=== PATIENT | male | born 2000 | race Caucasian/White ===

== ENCOUNTER 2021-03-28 08:31 | Observation (INO) ==
--- NOTE | 2021-03-28 09:35 | Emergency Department Note ---
History of Present Illness General Chief complaint: Mental Health Evaluation Stated complaint: MENTAL HEALTH EVALUATION Time Seen by Provider: 03/28/21 09:10 Source: patient, EMS and RN notes reviewed Mode of arrival: ambulatory Limitations: no limitations History of Present Illness This patient is a 20-year-old male who comes in brought in by the police on an apparent 302 petition although the petition statement is not here yet. 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 He is also use a lot of marijuana. This is a recreational use. He has not been try to hurt himself. Denies any aspirin or Tylenol or any overdose. Denies suicidal homicidal ideation. He is got multiple abrasions on his arm and he has a splint on his right hand. He says he likes to fight. He has a laceration on his left middle finger he said happened about a week ago and he has a large flap there is healing by secondary intention. He has had the Covid vaccine and also tested Covid negative on campus recently he tells me. Denies any other complaints. Home Medications Medication Instructions Recorded Confirmed Type bupropion HCl 150 mg 24 hr tablet, 150 mg PO QAM 03/28/21 03/28/21 History extended release (Wellbutrin XL) escitalopram oxalate 20 mg tablet 20 mg PO DAILY 03/28/21 03/28/21 History (Lexapro) Allergies Allergy/AdvReac Type Severity Reaction Status Date / Time No Known Allergies Allergy Unverified 03/28/21 09:17 Past Med/Surg History Medical History (Updated 03/28/21 @ 16:09 by PHYLICIA Oreilly) Anxiety Benzodiazepine abuse COVID Involuntary commitment Family History (Updated 03/28/21 @ 16:04 by PHYLICIA Oreilly) Other Family history non-contributory Social History Smoking Status: Current every day smoker Tobacco Type: Cigarettes Feels Safe at Home: Yes Immunizations: Past medical historyXanax addiction Review of Systems A total of 10 systems reviewed and were otherwise negative Physical Exam Vital Signs Vital Signs - 24 hr 03/28/21 09:03 09/12/21 15:10 Temperature 36.8 C 36.6 C Temperature Source Oral Oral Pulse Rate 90 Pulse Rate [Finger] 74 Respiratory Rate 18 16 Blood Pressure 148/62 H Blood Pressure [Left Arm] 107/73 Blood Pressure Mean 90 Blood Pressure Mean [Left Arm] 84 Pulse Oximetry 93 99 Oxygen Delivery Method Room Air Room Air Sepsis Recent Fever Within 48 Hours No Sepsis New/Unexplained Change in Mental Status N/A Sepsis Action Taken by Nursing No Action Required General: Well developed well nourished young male who appears in no acute distress, breathing comfortably on room air. Normal speech, nonslurred HEENT: Normal cephalic atraumatic. Pupils are equal round and reactive to light. Extraocular movements are intact. Oropharynx is pink with moist mucous membranes. No swelling of the mouth lips or tongue. Neck: Supple with a midline trachea. No meningeal signs or stiffness, no JVD or bruits. No Stridor. Chest: Clear to auscultation bilaterally. No wheezes or rhonchi. No increased work of breathing. Heart: Regular rate and rhythm without murmurs or gallops. Abdomen: Soft nontender, nondistended without rebound guarding or rigidity. Extremities: No cyanosis clubbing or edema. No calf tenderness or assymetry are multiple bruises in the arms. There is a flap of skin on the left middle finger. Is granulating and appears to be an old her wound at this point not amenable to suturing Spine/Back. Non tender to palpation. No CVA tenderness Skin: Good turgor without rashes. Neurologic exam: Cranial nerves two through 12 are intact. Motor and sensation are intact and symmetrical throughout. Psych: Denies suicidal homicidal ideations. Normal thought process Course Administered Medications Discontinued Medications Diphenhydramine HCl (Diphenhydramine Capsule 25 Mg Cap) 25 mg PO NOW ONE Stop: 03/28/21 13:44 Last Admin: 03/28/21 13:58 Dose: 25 mg Documented by: [id number] Lorazepam (Lorazepam 1 Mg Tab) 1 mg SL NOW STA Stop: 03/28/21 12:42 Last Admin: 03/28/21 12:46 Dose: 1 mg Documented by: [id number] Medical Decision Making Differential Diagnosis Depression, suicidal ideations, homicidal ideations, overdose, electrolyte or metabolic abnormality Medical Records Attestation: I reviewed the patient's medical records. Home Medications Current Medication List: was personally reviewed by me Laboratory Data Attestation: I reviewed the patient's lab results. Result diagrams: 03/28/21 09:50 03/28/21 09:50 Lab Results 03/28/21 03/28/21 03/28/21 Range/Units 08:50 08:50 09:50 WBC 8.07 (4.8-10.8) K/uL RBC 4.27 L (4.7-6.1) M/uL Hgb 13.4 L (14.0-18.0) g/dL Hct 39.0 L (42-52) % MCV 91.3 (80-100) fL MCH 31.4 (25-34) pg MCHC 34.4 (32-36) g/dL RDW Std Deviation 44.3 (36.4-46.3) fL RDW Coeff of Luis Alberto 13.5 (11.5-14.5) % Plt Count 249 (130-400) K/uL MPV 10.4 (7.4-10.4) fL Immature Gran % (Auto) 0.4 % Neut % (Auto) 79.1 % Lymph % (Auto) 10.7 % Platte % (Auto) 9.0 % Eos % (Auto) 0.7 % Baso % (Auto) 0.1 % Neut # (Auto) 6.38 (1.4-6.5) K/uL Lymph # (Auto) 0.86 L (1.2-3.4) K/uL Platte # (Auto) 0.73 H (0.11-0.59) K/uL Eos # (Auto) 0.06 (0-0.5) K/uL Baso # (Auto) 0.01 (0-0.2) K/uL Immature Gran # (Auto) 0.03 H (0.00-0.02) K/uL Sodium (136-145) mmol/L Potassium (3.5-5.1) mmol/L Chloride (98-107) mmol/L Carbon Dioxide (21-32) mmol/L Anion Gap (3-11) BUN (7-18) mg/dl Creatinine (0.6-1.4) mg/dl Est Cr Clr Drug Dosing ml/min Est GFR ( Amer) ml/min Est GFR (Non-Af Amer) ml/min BUN/Creatinine Ratio (10-20) Glucose (70-99) mg/dl Calcium (8.5-10.1) mg/dl Total Bilirubin (0.2-1) mg/dl AST (15-37) U/L ALT (12-78) U/L Alkaline Phosphatase (45-117) U/L Total Protein (6.4-8.2) gm/dl Albumin (3.4-5.0) gm/dl Globulin (2.5-4.0) gm/dl Albumin/Globulin Ratio (0.9-2) TSH (0.300-4.500) uIu/ml Urine Color Yellow Urine Appearance Clear (Clear) Urine pH 5.5 (4.5-7.5) Ur Specific Crawford 1.014 (1.000-1.030) Urine Protein Negative (Negative) Urine Glucose (UA) Negative (Negative) Urine Ketones Trace H (Negative) Urine Blood Negative (Negative) Urine Nitrite Negative (Negative) Urine Bilirubin Negative (Negative) Urine Urobilinogen Negative (Negative) Ur Leukocyte Esterase Negative (Negative) Salicylates (2.8-20) mg/dl Urine Opiates Screen Neg (Neg) Ur Methadone, Qual Neg (Neg) Acetaminophen (10-30) ug/ml Urine Barbiturates Neg (Neg) Ur Phencyclidine (PCP) Neg (Neg) U Amphetamin/Meth Scrn Neg (Neg) MDMA (Ecstasy) Screen Pos H (Neg) U Benzodiazepines Scrn Pos H (Neg) Ur Cocaine Metabolite Pos H (Neg) U Marijuana (THC) Screen Pos H (Neg) Ethyl Alcohol mg/dL (0-3) mg/dl COVID-19 Eval Order SARS-CoV-2 (PCR) (Negative) 03/28/21 03/28/21 03/28/21 Range/Units 09:50 09:50 09:50 WBC (4.8-10.8) K/uL RBC (4.7-6.1) M/uL Hgb (14.0-18.0) g/dL Hct (42-52) % MCV (80-100) fL MCH (25-34) pg MCHC (32-36) g/dL RDW Std Deviation (36.4-46.3) fL RDW Coeff of Luis Alberto (11.5-14.5) % Plt Count (130-400) K/uL MPV (7.4-10.4) fL Immature Gran % (Auto) % Neut % (Auto) % Lymph % (Auto) % Platte % (Auto) % Eos % (Auto) % Baso % (Auto) % Neut # (Auto) (1.4-6.5) K/uL Lymph # (Auto) (1.2-3.4) K/uL Platte # (Auto) (0.11-0.59) K/uL Eos # (Auto) (0-0.5) K/uL Baso # (Auto) (0-0.2) K/uL Immature Gran # (Auto) (0.00-0.02) K/uL Sodium 139 (136-145) mmol/L Potassium 3.8 (3.5-5.1) mmol/L Chloride 108 H (98-107) mmol/L Carbon Dioxide 24 (21-32) mmol/L Anion Gap 7.0 (3-11) BUN 10 (7-18) mg/dl Creatinine 0.92 (0.6-1.4) mg/dl Est Cr Clr Drug Dosing 144.7 ml/min Est GFR ( Amer) 138.3 ml/min Est GFR (Non-Af Amer) 119.3 ml/min BUN/Creatinine Ratio 11.3 (10-20) Glucose 86 (70-99) mg/dl Calcium 8.7 (8.5-10.1) mg/dl Total Bilirubin 0.5 (0.2-1) mg/dl AST 39 H (15-37) U/L ALT 39 (12-78) U/L Alkaline Phosphatase 101 (45-117) U/L Total Protein 6.8 (6.4-8.2) gm/dl Albumin 3.6 (3.4-5.0) gm/dl Globulin 3.2 (2.5-4.0) gm/dl Albumin/Globulin Ratio 1.1 (0.9-2) TSH 0.878 (0.300-4.500) uIu/ml Urine Color Urine Appearance (Clear) Urine pH (4.5-7.5) Ur Specific Crawford (1.000-1.030) Urine Protein (Negative) Urine Glucose (UA) (Negative) Urine Ketones (Negative) Urine Blood (Negative) Urine Nitrite (Negative) Urine Bilirubin (Negative) Urine Urobilinogen (Negative) Ur Leukocyte Esterase (Negative) Salicylates < 1.7 L (2.8-20) mg/dl Urine Opiates Screen (Neg) Ur Methadone, Qual (Neg) Acetaminophen < 2 L (10-30) ug/ml Urine Barbiturates (Neg) Ur Phencyclidine (PCP) (Neg) U Amphetamin/Meth Scrn (Neg) MDMA (Ecstasy) Screen (Neg) U Benzodiazepines Scrn (Neg) Ur Cocaine Metabolite (Neg) U Marijuana (THC) Screen (Neg) Ethyl Alcohol mg/dL < 3.0 (0-3) mg/dl COVID-19 Eval Order SARS-CoV-2 (PCR) (Negative) 03/28/21 03/28/21 Range/Units 09:55 09:55 WBC (4.8-10.8) K/uL RBC (4.7-6.1) M/uL Hgb (14.0-18.0) g/dL Hct (42-52) % MCV (80-100) fL MCH (25-34) pg MCHC (32-36) g/dL RDW Std Deviation (36.4-46.3) fL RDW Coeff of Luis Alberto (11.5-14.5) % Plt Count (130-400) K/uL MPV (7.4-10.4) fL Immature Gran % (Auto) % Neut % (Auto) % Lymph % (Auto) % Platte % (Auto) % Eos % (Auto) % Baso % (Auto) % Neut # (Auto) (1.4-6.5) K/uL Lymph # (Auto) (1.2-3.4) K/uL Platte # (Auto) (0.11-0.59) K/uL Eos # (Auto) (0-0.5) K/uL Baso # (Auto) (0-0.2) K/uL Immature Gran # (Auto) (0.00-0.02) K/uL Sodium (136-145) mmol/L Potassium (3.5-5.1) mmol/L Chloride (98-107) mmol/L Carbon Dioxide (21-32) mmol/L Anion Gap (3-11) BUN (7-18) mg/dl Creatinine (0.6-1.4) mg/dl Est Cr Clr Drug Dosing ml/min Est GFR ( Amer) ml/min Est GFR (Non-Af Amer) ml/min BUN/Creatinine Ratio (10-20) Glucose (70-99) mg/dl Calcium (8.5-10.1) mg/dl Total Bilirubin (0.2-1) mg/dl AST (15-37) U/L ALT (12-78) U/L Alkaline Phosphatase (45-117) U/L Total Protein (6.4-8.2) gm/dl Albumin (3.4-5.0) gm/dl Globulin (2.5-4.0) gm/dl Albumin/Globulin Ratio (0.9-2) TSH (0.300-4.500) uIu/ml Urine Color Urine Appearance (Clear) Urine pH (4.5-7.5) Ur Specific Crawford (1.000-1.030) Urine Protein (Negative) Urine Glucose (UA) (Negative) Urine Ketones (Negative) Urine Blood (Negative) Urine Nitrite (Negative) Urine Bilirubin (Negative) Urine Urobilinogen (Negative) Ur Leukocyte Esterase (Negative) Salicylates (2.8-20) mg/dl Urine Opiates Screen (Neg) Ur Methadone, Qual (Neg) Acetaminophen (10-30) ug/ml Urine Barbiturates (Neg) Ur Phencyclidine (PCP) (Neg) U Amphetamin/Meth Scrn (Neg) MDMA (Ecstasy) Screen (Neg) U Benzodiazepines Scrn (Neg) Ur Cocaine Metabolite (Neg) U Marijuana (THC) Screen (Neg) Ethyl Alcohol mg/dL (0-3) mg/dl COVID-19 Eval Order Covid19 at [facility] SARS-CoV-2 (PCR) POSITIVE A* (Negative) Imaging Data Attestation: I personally reviewed and interpreted this imaging study as follows: My Impression: Left hand x-rayno fracture or dislocation seen Radiologist's Impression: Hand X-Ray 03/28/21 09:30 XR hand LT min 3V routine HISTORY: 20 years-old Male trauma acute left hand pain status post trauma COMPARISON: None TECHNIQUE: 3 views of the left hand FINDINGS: Soft tissue swelling with skin irregularity of the distal third finger. No acute fracture, dislocation, opaque foreign body or osseous erosion. Limited lateral view secondary to positioning. IMPRESSION: Soft tissue swelling of the third finger without acute bony abnormality. ACT 112: Negative or not required by law. The above report was generated using voice recognition software. It may contain grammatical, syntax or spelling errors. Electronically signed by: Zach Aden M.D. 03/28/2021 9:43 AM Chest X-Ray 03/28/21 15:02 XR chest 1V portable HISTORY: Covid positive. Shortness of breath. COMPARISON: None. FINDINGS: The lungs are clear. Cardiac silhouette is normal in size. No pleural effusions. No pneumothorax. IMPRESSION: No acute process. ACT 112: Negative or not required by law. Electronically signed by: Jak Lewis M.D. 03/28/2021 4:12 PM [facility] Narrative This patient comes in as described above. He was placed in room A5. He is here for treatment and evaluation of depression and substance abuse and anger issues. He said his parents came up last night and this started this. Apparently is a 302 petition that it has not made to the ER yet. I did order baseline testing. He does have a laceration which is about a week old and at this point not amenable to primary closure. 1 we want to take a closer look the patient was belligerent. He is no fever or white count to suggest infection. Alcohol is negative there is nothing to suggest overdose with exception of toxicologic his urine drug screen did come back positive for benzodiazepines, marijuana, cocaine. His Covid test also came back surprisingly positive. Britney our psychiatric watch caser has seen him. Multiple family members have called expressing they are concerned about him being discharged. A 302 statement did arrive. There is a large substance abuse issue underline everything here but there also seems to be concerns about sending him home. We have consulted Dr. Pineda from [facility]. He was getting agitated and anxious and was willing to take some medication was given Ativan sublingual 1 mg x 1 is called and down and Britney was able to further talk to the patient. She also talked to the father who arrived. There is very serious concerns about being able to safety plan he has had thoughts of hurting others and intermittent thoughts of hurting himself as well. There is a substance abuse angle as well. Britney talk to multiple people involved with him and we do feel that he meets 3 of 2 criteria and this was signed off. Due to the fact that he was Covid positive he will have to be admitted to the medical service. As per the request I did order chest x-ray as well. The patient was given Benadryl additionally for his anxiety. Impression & Plan COVID, Involuntary commitment, Benzodiazepine abuse, Anxiety Discharge Plan Visit Data Chief Complaint: Mental Health Evaluation Stated Complaint: MENTAL HEALTH EVALUATION ED Provider: Cm Rivera Discharge Problem: COVID, Involuntary commitment, Benzodiazepine abuse, Anxiety Forms Stand Alone Forms: My [facility], Suicide Prevention Resources Prescriptions Prescriptions: No Action escitalopram oxalate [Lexapro] 20 mg Tablet 20 mg PO DAILY RF: 0 bupropion HCl [Wellbutrin XL] 150 mg Tablet Extended Release 24 Hr 150 mg PO QAM RF: 0 Referrals Referrals: PCP,NO [Primary Care Provider] -
--- NOTE | 2021-03-28 09:44 | XRay Report ---
XR hand LT min 3V routine HISTORY: 20 years-old Male trauma acute left hand pain status post trauma COMPARISON: None TECHNIQUE: 3 views of the left hand FINDINGS: Soft tissue swelling with skin irregularity of the distal third finger. No acute fracture, dislocatio n, opaque foreign body or osseous erosion. Limited lateral view secondary to positioning. IMPRESSION: Soft tissue swelling of the third finger without acute bony abnormality. ACT 112: Negative or not required by law. The above report was generated using voice recognition software. It may contain grammatical, syntax o r spelling errors. Electronically signed by: Zach Aden M.D. 03/28/2021 9:43 AM
[2021-03-28 10:00] LABS: Appearance Urine Clear (Clear); Bilirubin Urine Negative (Negative); Blood Urine Negative (Negative); Color Urine Yellow; Glucose Urine UA Negative (Negative); Ketones Urine Trace (Negative); Leukocyte Esterase Urine Negative (Negative); Nitrite Urine Negative (Negative); Protein Urine Negative (Negative); Specific Gravity Urine 1.014 (1.000-1.030); Urobilinogen Urine Negative (Negative); pH Urine 5.5 (4.5-7.5)
[2021-03-28 10:14] LABS: Basophils # (auto) 0.01 K/uL (0-0.2); Basophils % (auto) 0.1 %; Eosinophils # (auto) 0.06 K/uL (0-0.5); Eosinophils % (auto) 0.7 %; Hemoglobin 13.4 g/dL (14.0-18.0); Immature Granulocytes # (auto) 0.03 K/uL (0.00-0.02); Immature Granulocytes % (auto) 0.4 %; Lymphocytes # (auto) 0.86 K/uL (1.2-3.4); Lymphocytes % (auto) 10.7 %; Mean Corpuscular Hemoglobin 31.4 pg (25-34); Mean Corpuscular Hgb Conc 34.4 g/dL (32-36); Mean Corpuscular Volume 91.3 fL (80-100); Mean Platelet Volume 10.4 fL (7.4-10.4); Monocytes # (auto) 0.73 K/uL (0.11-0.59); Neutrophils # (auto) 6.38 K/uL (1.4-6.5); Neutrophils % (auto) 79.1 %; Platelet Count 249 K/uL (130-400); RDW Coefficient of Variation 13.5 % (11.5-14.5); RDW Standard Deviation 44.3 fL (36.4-46.3); Red Blood Count 4.27 M/uL (4.7-6.1); White Blood Count 8.07 K/uL (4.8-10.8)
[2021-03-28 10:20] LABS: Amphetamines+Metham, Urine Neg (Neg); Barbiturates, Urine Neg (Neg); Benzodiazepine, Urine Pos (Neg); Cocaine, Urine Pos (Neg); MDMA (Ecstacy), Urine Pos (Neg); Methadone, Urine Neg (Neg); Opiate, Urine Neg (Neg); Phencyclidine, Urine Neg (Neg)
[2021-03-28 10:31] LABS: Acetaminophen < 2 ug/ml (10-30); Salicylate < 1.7 mg/dl (2.8-20)
[2021-03-28 10:32] LABS: Albumin Level 3.6 gm/dl (3.4-5.0); BUN Creatinine Ratio 11.3 (10-20); Calcium 8.7 mg/dl (8.5-10.1); Creatinine Clr Calc Pharmacy 144.7 ml/min; Est GFR (African American) 138.3 ml/min; Est GFR (Non-African American) 119.3 ml/min; Potassium 3.8 mmol/L (3.5-5.1)
[2021-03-28 10:42] LABS: Albumin Globulin Ratio 1.1 (0.9-2); Bilirubin,Total 0.5 mg/dl (0.2-1); Globulin 3.2 gm/dl (2.5-4.0); Thyroid Stimulating Hormone 0.878 uIu/ml (0.300-4.500); Total Protein 6.8 gm/dl (6.4-8.2)
[2021-03-28] MEDS ORDERED: LORazepam 1 MG TAB SL STA (12:41)
[2021-03-28] MEDS ORDERED: diphenhydrAMINE Capsule 25 MG CAP PO ONE (13:43)
--- NOTE | 2021-03-28 16:13 | XRay Report ---
XR chest 1V portable HISTORY: Covid positive. Shortness of breath. COMPARISON: None. FINDINGS: The lungs are clear. Cardiac silhouette is normal in size. No pleural effusions. No pneumot horax. IMPRESSION: No acute process. ACT 112: Negative or not required by law. Electronically signed by: Jak Lewis M.D. 03/28/2021 4:12 PM
--- NOTE | 2021-03-28 16:14 | History & Physical Report ---
Date of Service March 28, 2021 Assessment & Plan (1) Anxiety: Plan: 302 continue outpatient medications of Bupropion and Lexapro - Ativan 2mg IV prn q4 hours anxiety, combativeness - Haldol 5mg IV prn q4 hours for combativeness, agitation - Psychology consult placed (2) Drug abuse: Plan: Multiple agents in toxicology screen - marijuana - benzo - cocaine - MDMA- likely related to bupropion await confirmatory (3) Involuntary commitment: Plan: 302 petition - (4) COVID: Plan: asymptomatic, no current therapy warranted - patient did not want to discuss any treatment, other than saying this "is bullshit I got the vaccination for a reason" - consider discussing remdesivir in the future - additional labs pending - PCT, Ferritin, LDH, CRP, ESR, Fibrinogen History of Present Illness Primary Care Provider: NO PCP 20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 The patient was brought in by the police on a 302 petition. Patient was to admitted to psych for combative, belligerent, and aggressive behavior and was subsequently found to have a (+) COVID 19 test. The patient states he is vaccinated. Patient is verbally belligerent at this time and did not want to participate in the interviewing process. Patient will be admitted to COVID unit. Psychology has been consulted. Patient is a symptomatic, not hypoxic, and his CXR has no acute process. Patient will have PRN Ativan and Haldol for behavior if needed. Repeat COVID test in morning COVID test on admission POSITIVE Allergies Allergy/AdvReac Type Severity Reaction Status Date / Time No Known Allergies Allergy Unverified 03/28/21 09:17 Home Medications Medication Instructions Recorded Confirmed Type bupropion HCl 150 mg 24 hr tablet, 150 mg PO QAM 03/28/21 03/28/21 History extended release (Wellbutrin XL) escitalopram oxalate 20 mg tablet 20 mg PO DAILY 03/28/21 03/28/21 History (Lexapro) Past Med/Surg History Medical History Anxiety Benzodiazepine abuse COVID Involuntary commitment Family History (Updated 03/28/21 @ 16:04 by PHYLICIA Oreilly) Other Family history non-contributory Social History Smoking Status: Current every day smoker Tobacco Type: Cigarettes Cigarettes Per Day: 3-4; Second Hand Exposure: No; Do You Dip or Chew Tobacco: No; Tobacco Cessation Education Requested by Patient: No Hx Alcohol Use: Yes Alcohol type: beer, wine and hard liquor Hx Substance Use: Yes Last Used Substance: Days (ago) Preferred Language: East Timorese Solution Consultant Required: No Beliefs That Will Affect Care: None Current Living Situation: Alone Current Living Situation Comment: [employer] Student lives in apartment Other Information That Helps Us Care for You: No Feels Safe at Home: Yes Assistive Devices: None Review of Systems Review of Systems: REVIEW OF SYSTEMS: Unable to provide accurate ROS - Patient refuses to participate in exam Physical Exam Physical Exam: deferred at this time secondary to belligerence and verbal threats - He is sitting in his bed- -he is loud and verbally abusive, but at this time not physically abusive - security was present during interviewing process - he had visible bruises to his arms and hands, with scratches to them- refuses to answer how he got there - His vital signs are reviewed and he is not tachycardic, tachypneic, or hypoxic Results & Data Results & Data ([facility]) Vital Signs (Past 12 Hours) Vital Signs Temp Pulse Pulse Resp BP BP Pulse Ox 03/28/21 15:10 36.6 C 74 16 107/73 99 03/28/21 09:03 36.8 C 90 18 148/62 H 93 Laboratory Results Abnormal lab results 03/28/21 03/28/21 03/28/21 Range/Units 08:50 08:50 09:50 RBC 4.27 L (4.7-6.1) M/uL Hgb 13.4 L (14.0-18.0) g/dL Hct 39.0 L (42-52) % Lymph # (Auto) 0.86 L (1.2-3.4) K/uL Ware # (Auto) 0.73 H (0.11-0.59) K/uL Immature Gran # (Auto) 0.03 H (0.00-0.02) K/uL Chloride (98-107) mmol/L AST (15-37) U/L Urine Ketones Trace H (Negative) Salicylates (2.8-20) mg/dl Acetaminophen (10-30) ug/ml MDMA (Ecstasy) Screen Pos H (Neg) U Benzodiazepines Scrn Pos H (Neg) Ur Cocaine Metabolite Pos H (Neg) U Marijuana (THC) Screen Pos H (Neg) SARS-CoV-2 (PCR) (Negative) 03/28/21 03/28/21 03/28/21 Range/Units 09:50 09:50 09:55 RBC (4.7-6.1) M/uL Hgb (14.0-18.0) g/dL Hct (42-52) % Lymph # (Auto) (1.2-3.4) K/uL Ware # (Auto) (0.11-0.59) K/uL Immature Gran # (Auto) (0.00-0.02) K/uL Chloride 108 H (98-107) mmol/L AST 39 H (15-37) U/L Urine Ketones (Negative) Salicylates < 1.7 L (2.8-20) mg/dl Acetaminophen < 2 L (10-30) ug/ml MDMA (Ecstasy) Screen (Neg) U Benzodiazepines Scrn (Neg) Ur Cocaine Metabolite (Neg) U Marijuana (THC) Screen (Neg) SARS-CoV-2 (PCR) POSITIVE A* (Negative) Diagnostic Findings Hand X-Ray 03/28/21 09:30 XR hand LT min 3V routine HISTORY: 20 years-old Male trauma acute left hand pain status post trauma COMPARISON: None TECHNIQUE: 3 views of the left hand FINDINGS: Soft tissue swelling with skin irregularity of the distal third finger. No acute fracture, dislocation, opaque foreign body or osseous erosion. Limited lateral view secondary to positioning. IMPRESSION: Soft tissue swelling of the third finger without acute bony abnormality. ACT 112: Negative or not required by law. The above report was generated using voice recognition software. It may contain grammatical, syntax or spelling errors. Electronically signed by: Zach Aden M.D. 03/28/2021 9:43 AM Medications Administered Home Medications bupropion HCl 150 mg 24 hr tablet, extended release (Wellbutrin XL) 150 mg PO QAM 03/28/21 [History Confirmed 03/28/21] escitalopram oxalate 20 mg tablet (Lexapro) 20 mg PO DAILY 03/28/21 [History Confirmed 03/28/21] ECG Additional Comments: Not performed Code Status & VTE Plan Code Status CODE: FULL (patient's answer was "whatever") VTE: scd's, ambulate in room VTE Prophylaxis Plan VTE Prophylaxis will be ordered: Yes Supervising Physician Co-Signing Physician Notes Attending addendum: I have physically seen this patient, have supervised the TOAN's activities, and agree with the H&P unless as otherwise noted. Assessment and Plan: Anxiety/drug abuse/involuntary commitment- 302 petition by the ED IV Ativan and IV Haldol as needed dosages as noted Consult psychiatry Urine drug screen positive for marijuana, benzodiazepines, cocaine. MDMA positivity is likely secondary to bupropion COVID-19 infection- Asymptomatic Found on routine admission testing Will need isolation but no treatment unless develops symptoms Remaining orders and notations as noted PG Care Time/CCT Total # of Minutes Spent Total Time Spent with Patient: Total time spent is greater than 50% in coordination of care (as documented) at patient's floor/unit and/or counseling patient: Coding Level of Care Code 87097 Initial Inpt Care Lvl 3 Diagnoses Anxiety F41.9 Involuntary commitment Z04.6 COVID U07.1 Drug abuse F19.10
[2021-03-28] MEDS ORDERED: HALOPERIDOL LACTATE 5 MG/ML 1 ML VIAL ONE (16:29)
[2021-03-28 16:32] LABS: C Reactive Protein 1.32 mg/dl (0-0.29); Ferritin 93.9 ng/ml (8-388)
[2021-03-28] MEDS: LORazepam 2 MG/ML VIAL (IM USE) IM PRN (16:35)
[2021-03-28] MEDS ORDERED: HALOPERIDOL LACTATE 5 MG/ML 1 ML VIAL IM STA ×2 (17:17→17:19)
[2021-03-28] MEDS ORDERED: LORazepam 2 MG/ML VIAL (IM USE) IM STA (17:17)
[2021-03-28 17:32] LABS: Fibrinogen 412 mg/dl (184-400)
[2021-03-28] MEDS ORDERED: ACETAMINOPHEN 325 MG TAB PO PRN (21:50)
[2021-03-28] MEDS ORDERED: HALOPERIDOL LACTATE 5 MG/ML 1 ML VIAL IM PRN (21:50)
[2021-03-29] MEDS: buPROPion XL 150 MG TABCR PO SCH (07:21)
[2021-03-29] MEDS: ESCITALOPRAM OXALATE 20 MG TAB PO SCH (07:22)
[2021-03-29 07:58] LABS: Basophils # (auto) 0.01 K/uL (0-0.2); Basophils % (auto) 0.1 %; Eosinophils # (auto) 0.04 K/uL (0-0.5); Eosinophils % (auto) 0.4 %; Hematocrit (blood only) 43.3 % (42-52); Hemoglobin 14.8 g/dL (14.0-18.0); Immature Granulocytes # (auto) 0.02 K/uL (0.00-0.02); Immature Granulocytes % (auto) 0.2 %; Lymphocytes # (auto) 1.27 K/uL (1.2-3.4); Lymphocytes % (auto) 13.8 %; Mean Corpuscular Hemoglobin 31.8 pg (25-34); Mean Corpuscular Hgb Conc 34.2 g/dL (32-36); Mean Corpuscular Volume 93.1 fL (80-100); Monocytes # (auto) 1.05 K/uL (0.11-0.59); Monocytes % (auto) 11.4 %; Neutrophils # (auto) 6.83 K/uL (1.4-6.5); Neutrophils % (auto) 74.1 %; Platelet Count 270 K/uL (130-400); RDW Coefficient of Variation 13.9 % (11.5-14.5); RDW Standard Deviation 47.1 fL (36.4-46.3); Red Blood Count 4.65 M/uL (4.7-6.1); White Blood Count 9.22 K/uL (4.8-10.8)
[2021-03-29 08:37] LABS: BUN Creatinine Ratio 8.1 (10-20); Calcium 9.3 mg/dl (8.5-10.1); Creatinine Clr Calc Pharmacy 126.8 ml/min; Est GFR (African American) 117.9 ml/min; Est GFR (Non-African American) 101.7 ml/min; Magnesium 2.1 mg/dl (1.8-2.4); Potassium 3.9 mmol/L (3.5-5.1)
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
[2021-03-29] MEDS: LORazepam 2 MG/ML VIAL (IM USE) IM PRN ×2 (13:56→20:41)
--- NOTE | 2021-03-29 18:04 | Hospitalist Progress Note ---
Date of Service March 29, 2021 Assessment & Plan (1) Anxiety: Plan: 302 continue outpatient medications of Bupropion and Lexapro - Ativan 2mg IV prn q4 hours anxiety, combativeness - Haldol 5mg IV prn q4 hours for combativeness, agitation - Psychology consult placed. Patient remains one-on-one given elopement risk, is denying SI/HI at this time. Patient agreeing to post discharge services and have a meeting with psychiatry consult, family meeting pending tomorrow. Unfortunately Covid positive status complicates ability to attend an inpatient facility as they are unlikely to accept him at this time due to Covid. (2) Drug abuse: Plan: Multiple agents in toxicology screen - marijuana - benzo - cocaine - MDMA- likely related to bupropion await confirmatory (3) Involuntary commitment: Plan: 302 petition -Psychiatry consulted, pending family meeting tomorrow (4) COVID: Plan: asymptomatic, no current therapy indicated No hypoxia - patient did not want to discuss any treatment, other than saying this "is bullshit I got the vaccination for a reason" -Asymptomatic at time of assessment, and vaccinated. If symptoms develop can consider remdesivir treatment - additional labs pending -Procalcitonin negative, TSH normal, CRP 1.32, AST 39, ALT 39, ferritin 93, fibrinogen 412 Admission and Anticipated Discharge Date Admission Date: March 28, 2021 Gurinder Cano is seen at the bedside this morning. He reports he is "fine". He reports he would like to go home today, discussed that that is not possible at this time, patient recognizes that he will need to have a follow-up and counseling plan and are anticipating a follow-up meeting with psychiatry tomorrow. Reports other than wanting to go home he feels okay. Reports he has not had shortness of breath, cough, difficulty breathing. Denies SI/HI at this time. Versus depression and frustration with the situation. Denies AH/VH. Review of Systems Review of Systems: All systems reviewed & are unremarkable except as noted in HPI & below Physical Exam Physical Exam: General: Somnolent, easily arouses to voice. Answers questions appropriately, follows commands appropriately. Mood "fine", affect frustrated. HEENT: Atraumatic, normocephalic. Pulm: CTAB A&P. -wheezes, -rales, -rhonchi. Symmetrical chest rise. No increase work of breathing. No respiratory distress. Cardiac: RRR, -mrg. Radial pulses intact and symmetrical. Extremity: Left middle finger with skin flap, old wound noted on admission with granulating tissue not amenable to suturing. Tender with some overlying erythema. No purulence. Results & Data Results & Data ([facility]) Vital Signs (Past 12 Hours) Vital Signs Temp Pulse Resp BP Pulse Ox 03/29/21 08:51 36.5 C 93 H 18 115/71 95 PG Care Time/CCT Total # of Minutes Spent Total Time Spent with Patient: Total time spent is greater than 50% in coordination of care (as documented) at patient's floor/unit and/or counseling patient: Coding Level of Care Code 02046 Subseq Hosp Care Lvl 2 Diagnoses Anxiety F41.9 Drug abuse F19.10 Involuntary commitment Z04.6 COVID U07.1
[2021-03-29 19:54] VITALS: BP 115/61; PULSE 104; TEMP 98.1; O2SAT 96
[2021-03-29] MEDS: cephALEXin 500 MG CAP PO SCH (20:00)
[2021-03-30 06:21] LABS: Basophils # (auto) 0.01 K/uL (0-0.2); Basophils % (auto) 0.1 %; Eosinophils # (auto) 0.06 K/uL (0-0.5); Eosinophils % (auto) 0.7 %; Hemoglobin 15.7 g/dL (14.0-18.0); Immature Granulocytes # (auto) 0.02 K/uL (0.00-0.02); Immature Granulocytes % (auto) 0.2 %; Lymphocytes # (auto) 1.26 K/uL (1.2-3.4); Lymphocytes % (auto) 14.3 %; Mean Corpuscular Hemoglobin 31.7 pg (25-34); Mean Corpuscular Hgb Conc 33.4 g/dL (32-36); Mean Corpuscular Volume 94.9 fL (80-100); Monocytes # (auto) 0.77 K/uL (0.11-0.59); Monocytes % (auto) 8.7 %; Neutrophils # (auto) 6.69 K/uL (1.4-6.5); Platelet Count 290 K/uL (130-400); RDW Coefficient of Variation 13.8 % (11.5-14.5); RDW Standard Deviation 47.1 fL (36.4-46.3); Red Blood Count 4.95 M/uL (4.7-6.1); White Blood Count 8.81 K/uL (4.8-10.8)
[2021-03-30 06:57] LABS: BUN Creatinine Ratio 12.5 (10-20); Calcium 9.2 mg/dl (8.5-10.1); Creatinine Clr Calc Pharmacy 137.3 ml/min; Est GFR (African American) 129.7 ml/min; Est GFR (Non-African American) 111.9 ml/min; Potassium 4.3 mmol/L (3.5-5.1)
[2021-03-30] MEDS: buPROPion XL 150 MG TABCR PO SCH (08:31)
[2021-03-30] MEDS: ESCITALOPRAM OXALATE 20 MG TAB PO SCH (08:32)
[2021-03-30] MEDS: cephALEXin 500 MG CAP PO SCH ×2 (08:32→12:59)
[2021-03-30] MEDS: LORazepam 2 MG/ML VIAL (IM USE) IM PRN ×2 (09:08→15:14)
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
--- NOTE | 2021-03-30 13:43 | Discharge Summary ---
Date of Service March 30, 2021 Admission HPI Per Admitting Provider 20 YOM student at the [employer] with past medical history of reported drug abuse, depression, anxiety. The patient was brought in by the police on a 302 petition. Patient was to admitted to psych for combative, belligerent, and aggressive behavior and was subsequently found to have a (+) COVID 19 test. The patient states he is vaccinated. Patient is verbally belligerent at this time and did not want to participate in the interviewing process. Patient will be admitted to COVID unit. Psychology has been consulted. Patient is asymptomatic, not hypoxic, and his CXR has no acute process. Patient will have PRN Ativan and Haldol for behavior if needed. Repeat COVID test in morning COVID test on admission POSITIVE Admission Exam Per Admitting Provider deferred at this time secondary to belligerence and verbal threats - He is sitting in his bed- -he is loud and verbally abusive, but at this time not physically abusive - security was present during interviewing process - he had visible bruises to his arms and hands, with scratches to them- refuses to answer how he got there - His vital signs are reviewed and he is not tachycardic, tachypneic, or hypoxic Principal Diagnosis Anxiety/depression Substance abuse Covid positive Discharge Exam General: Somnolent, easily arouses to voice. Answers questions appropriately, follows commands appropriately. Mood "fine", affect frustrated. HEENT: Atraumatic, normocephalic. Pulm: CTAB A&P. -wheezes, -rales, -rhonchi. Symmetrical chest rise. No increase work of breathing. No respiratory distress. Cardiac: RRR, -mrg. Radial pulses intact and symmetrical. Extremity: Left middle finger with skin flap, old wound noted on admission with granulating tissue not amenable to suturing. Tender, erythema improved from prior. No purulence. Discharge Data Allergies Allergy/AdvReac Type Severity Reaction Status Date / Time No Known Allergies Allergy Unverified 03/28/21 09:17 Consultations 03/28/21 14:46 ED Decision to Admit Stat 03/28/21 21:50 Consult Psychiatry Routine Hospital Course (1) Anxiety: Abuse who Paula Colby is a 20-year-old male with a past medical history of anxiety/depression did as a 302 involuntary commitment following being caught in by police for combative behavior. Is discharged to the care of his parents to follow-up for additional services in [place], his home. Behavioral disturbance, involuntary 302 commitment Patient brought in by police for altered behavior with urine drug screen positive for marijuana, benzodiazepines, cocaine, and MDMA. Confirmatory test pending, MDMA potentially false positive due to bupropion treatment Patient behavior improved over hospitalization, denied SI/HI at time of discharge Psychiatry team consulted, extensive discussions had with both patient and family. Initially agreeable to only outpatient services, declined inpatient rehab although his family is an advocate for inpatient rehab. On further discussion family expressed a desire for him to return home to [place] first, and inpatient rehab complicated by Covid positive test x2 and would not be a candidate for admission until he had convalesced. His behavior improved during hospitalization, and no longer met 302 criteria on day of discharge. This is discussed with patient and family as well. Family recognized complication of Covid positive status, and return precautions discussed. Safety plan discussed with patient and provider by psychiatry, reinforced at time of discharge. Patient agreeable to plan. Continue bupropion, continue Escitalopram (2) Drug abuse: Multiple agents in toxicology screen - marijuana - benzo - cocaine - MDMA- likely related to bupropion await confirmatory (3) Involuntary commitment: 302 petition -PAD improved overnight, no longer met criteria on 03/30 (4) COVID: asymptomatic, no current therapy warranted - patient did not want to discuss any treatment, other than saying this "is bullshit I got the vaccination for a reason" -Patient remained asymptomatic, without hypoxia throughout admission -Discussed return precautions including fever, chills, sweats, shortness of breath, difficulty breathing and other symptoms. Discussed increased risk for blood clots, and to follow-up with PCP within 1 week of returning home and to proceed to the emergency department if any new or concerning symptoms develop. Patient and family agreeable to this Procalcitonin elevated, CRP mildly elevated, no leukocytosis, fibrinogen 412 Chest x-ray no acute process Recommend repeat labs as outpatient in 1-2 weeks (5) Cellulitis: Left middle finger distal to the DIP with approximate 2-3 cm lacerat ion/skin flap injury which patient reports he got "doing jujitsu ". This was not amenable to suture/repair as did not occur within the prior day per patient. Was well healing with granulation tissue, however was noted to have increased erythema around the borders and some swelling and tenderness following admission. X-ray did not suggest bony involvement, soft tissue swelling was noted. He was started on treatment for cellulitis with Keflex and 500 mg p.o. 4 times daily with improvement of erythema at time of discharge. Recommend total 5-day course of treatment with Keflex and follow-up to outpatient provider for reassessment. Total Time Total Time Spent Total Time Spent (In Minutes): Spent coordinating discharge including patient care, coordination of care, and review of labs and images approximately 45 minutes. Discharge Plan Discharge Items Patient Disposition: Home - Self-Care Reason For Visit: 302 PSYCH - COVID POSITIVE Discharge Diagnosis: Depressive disorder, substance use Activity: Per Instructions section Non-emergency contact: Primary Care Provider Call non-emergency contact if: you have any medication questions, your symptoms worsen, your pain is not controlled, your pain is worsening, your pain is unusual for you, your pain is concerning for you and you have a fever Follow-up/Referrals: PCP,NO [Primary Care Provider] - Diet: Regular Addtl Attending Provider Instructions: You were seen in the hospital after being brought in by the police with concerns for behavioral disturbance with a history of anxiety/depression and were also found to have a Covid 19+ test during admission. You have remained asymptomatic with COVID-19 and had prior vaccination. During admission you met with the psychiatry team and family meetings were held with your family. Possible diagnoses including bipolar disorder was discussed, although this can be difficult to interpret in the setting of substance abuse and is best determined after period of sobriety. You did not express suicidal or homicidal ideation during admission, and treatment options. Discussion with family you and your family have expressed a desire to return home and seek treatment following a period of sobriety. You have been discharged to the care of your family with follow-up to your home with primary care provider at this time. You any Covid positive test, and did not experience symptoms during your admission. If you develop any worsening symptoms including fever, chills, sweats, shortness of breath, difficulty breathing, extremity swelling, or other new or concerning symptoms please return to the emergency department for reevaluation. You experienced an injury on your middle finger which was not able to be sutured or closed. This injury was well-healing, but did have some peripheral spreading redness and you have been prescribed an antibiotic for 5 days to treat cellu litis, superficial skin infection. Please take cephalexin 500 mg 4 times daily for 4 additional days to complete 5 days of treatment. This can cause some loose bowels. If you experience any symptoms as noted below, please return to emergency department for reevaluation. In a meeting has been visual for you with student care and advocacy on 03/31 at 11 AM. Please attend this meeting virtually at the following link:[email or web address] You are returning home with your parents to [place]. Please follow-up with your primary care provider for an appointment when you return home, you should be seen within 1 week. If you develop any new or worsening symptoms including fever, chills, sweats, chest pain, chest pressure, difficulty breathing, uncontrolled nausea/vomiting, rash, wheezing, passing out or nearly passing out, bleeding, black/bloody bowel movements, or other new or concerning symptoms please call your primary care physician, or call 911 for re-evaluation in the emergency department if you are very concerned. Pending Studies at Discharge: Yes (Confirmatory urine toxicology sent out) Stand-Alone Forms: [facility] [employer], Smoking Cessation Medications and DC Order Prescriptions: New cephalexin 500 mg Capsule 500 mg PO QID 4 Days Qty: 16 RF: 0 Continued escitalopram oxalate [Lexapro] 20 mg Tablet 20 mg PO DAILY RF: 0 bupropion HCl [Wellbutrin XL] 150 mg Tablet Extended Release 24 Hr 150 mg PO QAM RF: 0 Discharge Orders: Discharge Order (Routine); Ordered 03/30/21 Ordered By: Wesley Ferguson Admission Data Admit Date/Time: 03/28/21 15:55 Attending Provider: Wesley Ferguson Admit Provider: Sean Galdamez Primary Care Provider: PCP,NO Other Providers: Sean Galdamez ; Mariely Manrique ; Nena Mcclure ; Wesley Cortes Other Interventions: Discharge Summary Assessment (RN) Last Done: 03/30/21 14:01 Coding Level of Care Code D/C DAY MANAGEMENT >30 MINS Diagnoses Anxiety F41.9 Drug abuse F19.10 Involuntary commitment Z04.6 COVID U07.1 Cellulitis L03.90
[2021-03-31 18:48] LABS: 7-Aminoclonaz, Confirm NEGATIVE ng/mL (<25); Cocaine, Urine 905 ng/mL (<100); Hydro-Alp Ur, GC/MS 34 ng/mL (<25); Hydroxyethylflurazepam, Conf NEGATIVE ng/mL (<50); Hydroxymidazolam Ur, GC/MS NEGATIVE ng/mL (<50); Hydroxytriazolam NEGATIVE ng/mL (<50); Lorazepam, Ur GC/MS NEGATIVE ng/mL (<50); MDA negative; MDEA negative; MDMA (Ecstasy) Urine, Confirm negative; Marijuana Quant, GCMS Urine 1560 ng/mL (<5); Nordiazepam, Confirm NEGATIVE ng/mL (<50); Oxazepam Ur, GC/MS NEGATIVE ng/mL (<50); Temazepam, Confirm NEGATIVE ng/mL (<50)
== END 2021-03-30 15:45 | disposition home or self-care (01) | DRG 881 ==
LOC: ED 08:31 → 2N 15:55 → INTOOBSV 15:55 → SUATTDRO 15:55 → 2N 21:55